=== PATIENT | female | born 1985 | race Caucasian/White ===

== ENCOUNTER 2016-12-06 12:20 | Observation (INO) | payer OTHER ==
[~2016-12-06] VITALS: Ht 154.9 cm; Wt 122.5 kg
[2016-12-06 13:16] VITALS: BP 130/76
[2016-12-06] MEDS ORDERED: TERBUTALINE 1 MG/ML VIAL SUBQ SCH (13:25)
[2016-12-06] MEDS ORDERED: TERBUTALINE 1 MG/ML VIAL SUBQ ONE ×2 (13:33→14:14)
[2016-12-06] MEDS ORDERED: TERBUTALINE 2.5 MG TAB ONE ×3 (16:09→23:40)
[2016-12-06] MEDS: TERBUTALINE 2.5 MG TAB PO SCH (20:23)
[2016-12-07] MEDS: TERBUTALINE 2.5 MG TAB PO SCH ×3 (00:14→07:58)
[2016-12-07] MEDS ORDERED: TERBUTALINE 2.5 MG TAB ONE ×3 (04:10→12:51)
--- NOTE | 2016-12-07 09:16 | NUR ---
PATIENT HAS BEEN SCREENED AND CATEGORIZED LOW NUTRITION RISK. PATIENT WILL BE SEEN WITHIN 7 DAYS OF ADMISSION. 12/13/[address]
[2016-12-07 14:11] VITALS: BP 110/61
== END 2016-12-07 14:30 | disposition home or self-care (01) ==
LOC: MLD 12:20
PROVIDERS: ADMIT Obstetrics & Gynecology; ATTEND Obstetrics & Gynecology
DX: O26.899 Other specified pregnancy related conditions, unspecified trimester (principal); R10.9 Unspecified abdominal pain; Z3A.00 Weeks of gestation of pregnancy not specified
CPT/HCPCS: 76815; 81000; 96372; G0378; J3105; Q0092

== ENCOUNTER 2016-12-16 06:55 | Inpatient (IN) | payer OTHER ==
[~2016-12-16] VITALS: Ht 154.9 cm; Wt 127.0 kg
[2016-12-16] MEDS ORDERED: LACTATED RINGERS 1,000 ML IV SCH (07:45)
--- NOTE | 2016-12-16 08:36 | NUR ---
PATIENT HAS BEEN SCREENED AND CATEGORIZED LOW NUTRITION RISK. PATIENT WILL BE SEEN WITHIN 7 DAYS OF ADMISSION. 12/22/[address]
[2016-12-16] MEDS ORDERED: ePHEDrine 50 MG/ML VIAL ONE (11:00)
[2016-12-16] MEDS ORDERED: ONDANSETRON 4 MG/2 ML VIAL ONE (11:00)
[2016-12-16] MEDS ORDERED: fentaNYL 0.05 MG/ML VIAL ONE (11:11)
[2016-12-16] MEDS ORDERED: KETAMINE 500 MG/5 ML VIAL ONE (11:11)
[2016-12-16] MEDS ORDERED: MIDAZOLAM 2 MG/2 ML VIAL ONE (11:11)
[2016-12-16] MEDS ORDERED: MORPHINE PRES FREE 10 MG/10 ML AMP IV ONE (11:12)
[2016-12-16] MEDS ORDERED: ceFAZolin 1,000 MG VIAL ONE (11:57)
[2016-12-16] MEDS ORDERED: KETOROLAC 30 MG/ML VIAL IVP PRN ×2 (12:05→14:25)
[2016-12-16] MEDS ORDERED: diphenhydrAMINE 50 MG/ML VIAL IVP PRN (12:05)
[2016-12-16] MEDS ORDERED: ONDANSETRON 4 MG/2 ML VIAL IVP PRN (12:05)
[2016-12-16] MEDS ORDERED: HYDROmorphone 1 MG/ML AMP IVP PRN (14:25)
[2016-12-16] MEDS ORDERED: MEASLES, MUMPS, AND RUBELLA 1 VIAL SQVAC PRN (14:25)
[2016-12-16] MEDS ORDERED: OXYTOCIN 20 UNITS/LR PREMIX 1,000 ML IV SCH (14:25)
[2016-12-16] MEDS ORDERED: OXYTOCIN 20 UNITS/LR PREMIX 1,000 ML IV ONE (14:41)
[2016-12-17] MEDS: IBUPROFEN 600 MG TAB PO PRN ×2 (12:01→16:11)
[2016-12-17] MEDS ORDERED: IBUPROFEN 600 MG TAB PO PRN ×2 (21:30→22:00)
[2016-12-18] MEDS: IBUPROFEN 600 MG TAB PO PRN ×3 (07:44→20:23)
[2016-12-18] MEDS ORDERED: SODIUM PHOSPHATE 118 ML ENEM RC PRN (08:00)
[2016-12-18] MEDS ORDERED: BISACODYL 5 MG TABEC PO PRN (08:00)
[2016-12-18] MEDS ORDERED: DOCUSATE SODIUM 100 MG GELCAP PO PRN (08:00)
[2016-12-18] MEDS: SIMETHICONE 80 MG TAB.CHEW PO PRN (09:10)
[2016-12-18] MEDS: oxyCODONE/APAP 5/325 MG 1 TAB TAB PO PRN (09:12)
[2016-12-19] MEDS: IBUPROFEN 600 MG TAB PO PRN ×2 (09:07→17:56)
[2016-12-19] MEDS: SIMETHICONE 80 MG TAB.CHEW PO PRN (19:31)
[2016-12-19] MEDS: oxyCODONE/APAP 5/325 MG 1 TAB TAB PO PRN (19:31)
[2016-12-20] MEDS: IBUPROFEN 600 MG TAB PO PRN ×2 (00:57→12:30)
[2016-12-20] MEDS: oxyCODONE/APAP 5/325 MG 1 TAB TAB PO PRN ×2 (01:39→07:05)
== END 2016-12-20 14:50 | disposition home or self-care (01) | DRG 540 ==
LOC: MLD 06:55 → MFCC 11:45
PROVIDERS: ADMIT Obstetrics & Gynecology; ATTEND Obstetrics & Gynecology
PROC: 0UB70ZZ Excision of Bilateral Fallopian Tubes, Open Approach (ICD-10-PCS; 2016-12-16)
PROC: 3E0234Z Introduction of Serum, Toxoid and Vaccine into Muscle, Percutaneous Approach (ICD-10-PCS; 2016-12-16)
PROC: 10D00Z1 Extraction of Products of Conception, Low, Open Approach (ICD-10-PCS; principal; 2016-12-16 11:00)
DX: O34.211 Maternal care for low transverse scar from previous cesarean delivery (principal); Z68.43 Body mass index [BMI] 50.0-59.9, adult; O99.214 Obesity complicating childbirth; E66.01 Morbid (severe) obesity due to excess calories; O69.81X0 Labor and delivery complicated by cord around neck, without compression, not applicable or unspecified; Z37.0 Single live birth; Z30.2 Encounter for sterilization; Z3A.39 39 weeks gestation of pregnancy; Z23 Encounter for immunization